=== PATIENT | female | born 1990 | race Caucasian/White ===

== ENCOUNTER → 2023-09-09 | Outpatient (CLI) | payer BC, OTHER ==
--- NOTE | 2023-09-09 14:22 | MM ---
Reason for Exam: Clinical finding. Baseline mammogram. Indicated Problems: Lump or thickening of the right side for 8 Month(s). Patient History: Menarche at age 9. First Full-Term at age 24. Last menstrual period: 08/29/2023 Prior Study Comparison: Patient's first Mammogram. Tissue Density: The breast tissue is heterogeneously dense. This may lower the sensitivity of mammography. Findings: Analyzed By CAD. No significant mass, suspicious microcalcification, or other discrete abnormality is seen. Asymmetric density such as superior left MLO view at a middle depth do not persist on 3-D images. Palpable marker high at the right axilla for which further ultrasound evaluation is recommended. Overall Assessment: Incomplete: need additional imaging evaluation, BI-RAD 0 Management: Diagnostic Breast Ultrasound of the right breast. Electronically signed and approved by: Ed Cr M.D. Radiologist
--- NOTE | 2023-09-09 14:46 | USB ---
Reason for Exam: Clinical finding. Patient History: Menarche at age 9. First Full-Term at age 24. Technique: Method: Targeted. Findings: The axilla of the right breast was scanned. Targeted ultrasound right axilla at the patient's palpable site shows a prominent but benign appearing lymph node measuring 2.3 x 1.9 x 1.1 cm with large fatty hilum and uniform thin cortex. No other solid or cystic lesion. Overall Assessment: Benign, BI-RAD 2 Management: Screening Mammogram of both breasts at age 38. Unless there is an indication to start sooner. Further clinical management of any suspicious palpable abnormalities. Patient can continue monthly self breast exams. Results were given to the patient verbally at the time of exam. Electronically signed and approved by: Ed Cr M.D. Radiologist
== END | disposition home or self-care (01) ==
LOC: RADMAMWWP 13:53
PROVIDERS: ATTEND Family Medicine
DX: R22.31 Localized swelling, mass and lump, right upper limb (principal)
CPT/HCPCS: 77062; 77066